=== PATIENT | male | born 1970 | race Caucasian/White ===

== ENCOUNTER 2018-02-08 22:15 | Inpatient (IN) | payer BC ==
[~2018-02-08] VITALS: Ht 182.9 cm; Wt 108.0 kg
[2018-02-08 22:27] VITALS: BP 152/76; PULSE 121; TEMP 102.2
[2018-02-08] MEDS ORDERED: GLUCOSAMIN 500 PO (23:14)
[2018-02-08] MEDS ORDERED: EPA FISH OIL1 SGL PO (23:15)
[2018-02-08] MEDS ORDERED: VITAMINE200 PO (23:15)
[2018-02-09] VITALS (13 sets, daily range): BP systolic 99–122; BP diastolic 57–72; PULSE 79–115; TEMP 98.5–98.9
[2018-02-09 06:34] LABS: HEMATOCRIT 40.9 % (42.0-52.0); HEMOGLOBIN 13.7 g/dl (13.5-18.0); MEAN CELL VOLUME 90 fl (80.0-100.0); MEAN CORPUSCULAR HEMOGLOBIN 30 pg (27.0-31.0); MEAN CORPUSCULAR HGB CONC 34 g/dl (33.0-37.0); MEAN PLATELET VOLUME 10.4 fl (7.4-10.4); PLATELET COUNT 220 K/mm3 (130-400); RED BLOOD COUNT 4.55 M/mm3 (4.20-5.60); REDCELL DISTRIBUTION WIDTH-CV 13.8 % (11.5-14.5)
[2018-02-09 06:44] LABS: ALBUMIN 3.3 gm/dL (3.5-5.0); BILIRUBIN,TOTAL 0.7 mg/dL (0.0-1.0); CALCIUM 8.1 mg/dL (8.4-10.2); CREATININE, serum 0.99 mg/dL (0.66-1.25); TOTAL PROTEIN 6.6 gm/dL (6.4-8.2)
[2018-02-09 07:14] LABS: BAND 37 % (0-10); LYMPHOCYTE 13 % (20.0-51.0); NEUTROPHILS 50 % (42.0-75.2); PLATELET ESTIMATE NORMAL (NORMAL)
[2018-02-10 04:07] VITALS: BP 115/63; PULSE 96; TEMP 98.4
[2018-02-10 06:35] LABS: BASO % 0.3 % (0.0-2.0); EOS # 0.1 (0.0-0.7); EOS % 0.7 % (0-4.0); GRAN # 8.6 (1.4-6.5); GRAN % 75.3 % (42.2-75.2); HEMATOCRIT 37.6 % (42.0-52.0); HEMOGLOBIN 12.6 g/dl (13.5-18.0); LYMPH # 1.9 (1.2-3.4); LYMPH % 16.3 % (20.0-51.0); MEAN CELL VOLUME 91 fl (80.0-100.0); MEAN CORPUSCULAR HEMOGLOBIN 31 pg (27.0-31.0); MEAN CORPUSCULAR HGB CONC 34 g/dl (33.0-37.0); MEAN PLATELET VOLUME 10.6 fl (7.4-10.4); MONO # 0.8 (0.1-0.6); MONO % 6.8 % (1.7-9.3); PLATELET COUNT 203 K/mm3 (130-400); RED BLOOD COUNT 4.13 M/mm3 (4.20-5.60); REDCELL DISTRIBUTION WIDTH-CV 14.1 % (11.5-14.5)
[2018-02-10 06:53] LABS: ALBUMIN 3.2 gm/dL (3.5-5.0); CALCIUM 8.5 mg/dL (8.4-10.2); CREATININE, serum 0.93 mg/dL (0.66-1.25); POTASSIUM 3.8 mmol/L (3.4-5.0)
[2018-02-10 07:55] VITALS: BP 130/79; PULSE 94; TEMP 97.8
[2018-02-10 11:55] VITALS: BP 136/76; PULSE 99; TEMP 97.9
[2018-02-10 15:30] VITALS: BP 139/83; PULSE 110; TEMP 98.1
[2018-02-10 19:40] VITALS: BP 139/85; PULSE 108; TEMP 99.6
[2018-02-10 23:51] VITALS: BP 145/99; PULSE 122; TEMP 99.1
[2018-02-11 03:40] VITALS: BP 147/96; PULSE 119; TEMP 98.2
[2018-02-11 07:44] VITALS: BP 138/89; PULSE 117; TEMP 98.1
[2018-02-11 08:03] LABS: HEMATOCRIT 45.8 % (42.0-52.0); MEAN CELL VOLUME 93 fl (80.0-100.0); MEAN CORPUSCULAR HEMOGLOBIN 31 pg (27.0-31.0); MEAN CORPUSCULAR HGB CONC 34 g/dl (33.0-37.0); MEAN PLATELET VOLUME 10.6 fl (7.4-10.4); PLATELET COUNT 279 K/mm3 (130-400); RED BLOOD COUNT 4.95 M/mm3 (4.20-5.60); REDCELL DISTRIBUTION WIDTH-CV 14.1 % (11.5-14.5)
[2018-02-11 08:07] LABS: HEMOGLOBIN 15.4 g/dl (13.5-18.0)
[2018-02-11 08:50] LABS: CALCIUM 8.8 mg/dL (8.4-10.2); CREATININE, serum 1.02 mg/dL (0.66-1.25); MAGNESIUM 2.4 mg/dL (1.6-2.3); PHOSPHOROUS 3.4 mg/dL (2.5-4.5)
[2018-02-11 09:19] LABS: BAND 5 % (0-10); LYMPHOCYTE 11 % (20.0-51.0); NEUTROPHILS 80 % (42.0-75.2)
[2018-02-11 09:20] LABS: PLATELET ESTIMATE NORMAL (NORMAL)
[2018-02-11 11:28] VITALS: BP 144/87; PULSE 113; TEMP 97.6
[2018-02-11 15:27] VITALS: BP 143/86; PULSE 107; TEMP 99.7
[2018-02-11 19:34] VITALS: BP 156/87; PULSE 104; TEMP 98.8
[2018-02-11 23:28] VITALS: BP 150/85; PULSE 89; TEMP 98
[2018-02-12 03:48] VITALS: BP 145/84; PULSE 87; TEMP 98.3
[2018-02-12 07:14] LABS: HEMATOCRIT 37.8 % (42.0-52.0); MEAN CELL VOLUME 92 fl (80.0-100.0); MEAN CORPUSCULAR HEMOGLOBIN 31 pg (27.0-31.0); MEAN CORPUSCULAR HGB CONC 34 g/dl (33.0-37.0); MEAN PLATELET VOLUME 10.3 fl (7.4-10.4); PLATELET COUNT 271 K/mm3 (130-400); RED BLOOD COUNT 4.12 M/mm3 (4.20-5.60); REDCELL DISTRIBUTION WIDTH-CV 14.1 % (11.5-14.5)
[2018-02-12 07:21] LABS: CALCIUM 8.5 mg/dL (8.4-10.2); CREATININE, serum 0.95 mg/dL (0.66-1.25); POTASSIUM 3.7 mmol/L (3.4-5.0)
[2018-02-12 07:25] LABS: HEMOGLOBIN 12.7 g/dl (13.5-18.0)
[2018-02-12 07:59] VITALS: BP 150/92; PULSE 94; TEMP 98.6
[2018-02-12 08:22] LABS: LYMPHOCYTE 13 % (20.0-51.0); NEUTROPHILS 81 % (42.0-75.2); PLATELET ESTIMATE NORMAL (NORMAL)
[2018-02-12 08:23] LABS: TOXIC GRANULATION PRESENT
[2018-02-12 11:37] VITALS: BP 130/74; PULSE 86; TEMP 98.9
[2018-02-12 15:57] VITALS: BP 153/90; PULSE 88; TEMP 98.6
[2018-02-12 20:29] VITALS: BP 149/85; PULSE 94; TEMP 98.6
[2018-02-13 03:56] VITALS: BP 136/76; PULSE 114; TEMP 98.8
[2018-02-13 07:21] VITALS: BP 146/85; PULSE 100; TEMP 99
[2018-02-13 11:18] LABS: ALBUMIN 2.8 gm/dL (3.5-5.0); BASO # 0.1 (0.0-0.2); BASO % 0.4 % (0.0-2.0); CALCIUM 8.3 mg/dL (8.4-10.2); CREATININE, serum 0.93 mg/dL (0.66-1.25); EOS # 0.3 (0.0-0.7); EOS % 2.7 % (0-4.0); GRAN % 69.5 % (42.2-75.2); HEMOGLOBIN 12.4 g/dl (13.5-18.0); LYMPH # 1.7 (1.2-3.4); LYMPH % 15.1 % (20.0-51.0); MEAN CELL VOLUME 91 fl (80.0-100.0); MEAN CORPUSCULAR HEMOGLOBIN 31 pg (27.0-31.0); MEAN CORPUSCULAR HGB CONC 34 g/dl (33.0-37.0); MEAN PLATELET VOLUME 9.9 fl (7.4-10.4); MONO # 1.3 (0.1-0.6); MONO % 11.4 % (1.7-9.3); PHOSPHOROUS 2.9 mg/dL (2.5-4.5); PLATELET COUNT 263 K/mm3 (130-400); POTASSIUM 3.5 mmol/L (3.4-5.0); RED BLOOD COUNT 4.07 M/mm3 (4.20-5.60); REDCELL DISTRIBUTION WIDTH-CV 14.2 % (11.5-14.5)
[2018-02-13 12:47] VITALS: BP 152/83; PULSE 95; TEMP 99.1
[2018-02-13 16:05] VITALS: BP 150/88; PULSE 99; TEMP 99.6
[2018-02-13 20:03] VITALS: BP 154/88; PULSE 91; TEMP 98.9
[2018-02-14] VITALS (7 sets, daily range): BP systolic 127–151; BP diastolic 77–89; PULSE 62–102; TEMP 98.1–98.7
[2018-02-15 03:53] VITALS: BP 151/80; PULSE 89; TEMP 98.3
[2018-02-15 06:40] LABS: HEMATOCRIT 34.5 % (42.0-52.0); HEMOGLOBIN 11.4 g/dl (13.5-18.0); MEAN CELL VOLUME 92 fl (80.0-100.0); MEAN CORPUSCULAR HEMOGLOBIN 30 pg (27.0-31.0); MEAN CORPUSCULAR HGB CONC 33 g/dl (33.0-37.0); PLATELET COUNT 262 K/mm3 (130-400); RED BLOOD COUNT 3.77 M/mm3 (4.20-5.60); REDCELL DISTRIBUTION WIDTH-CV 13.6 % (11.5-14.5)
[2018-02-15 06:54] LABS: CALCIUM 8.4 mg/dL (8.4-10.2); CREATININE, serum 0.77 mg/dL (0.66-1.25); POTASSIUM 3.4 mmol/L (3.4-5.0)
[2018-02-15 08:03] VITALS: BP 125/71; PULSE 88; TEMP 98.4
[2018-02-15 09:39] LABS: BAND 2 % (0-10); BASOPHIL 2 % (0-2); EOSINOPHIL 1 % (0-4); LYMPHOCYTE 19 % (20.0-51.0); NEUTROPHILS 72 % (42.0-75.2); PLATELET ESTIMATE NORMAL (NORMAL)
[2018-02-15] MEDS ORDERED: PERCOCET 325 MG1 TA2 PO (10:47)
[2018-02-15] MEDS ORDERED: COLACE 100100 MG/CAP PO (10:48)
[2018-02-15] MEDS ORDERED: MOTRIN 600600 MG/TAB PO (10:49)
[2018-02-15] MEDS ORDERED: AMOXICILLIN 8751 TAB PO (10:49)
[2018-02-15 11:22] VITALS: BP 145/74; PULSE 107; TEMP 98.2
[2018-02-15 16:35] VITALS: BP 124/77; PULSE 94; TEMP 98.5
[2018-02-15 20:11] VITALS: BP 144/79; PULSE 101; TEMP 97.9
[2018-02-15 23:34] VITALS: BP 146/90; PULSE 100; TEMP 98.2
[2018-02-16 04:33] VITALS: BP 127/80; PULSE 90; TEMP 98.5
[2018-02-16 07:41] LABS: CALCIUM 8.5 mg/dL (8.4-10.2); CREATININE, serum 0.77 mg/dL (0.66-1.25); POTASSIUM 3.3 mmol/L (3.4-5.0)
[2018-02-16 08:53] VITALS: BP 150/81; PULSE 113; TEMP 98
== END 2018-02-16 11:00 | disposition home or self-care (01) | DRG 329 ==
LOC: SURG 22:15
PROVIDERS: Surgery
PROC: 0DB80ZZ Excision of Small Intestine, Open Approach (ICD-10-PCS; principal; 2018-02-09)
DX: Q43.0 Meckel's diverticulum (displaced) (hypertrophic) (principal); K65.0 Generalized (acute) peritonitis; K56.7 Ileus, unspecified
CPT/HCPCS: A4314; A9284; J1100; J1170; J1650; J1885; J2405; J2543; J2550; J2704; J2710; J3010; J3230; J7040; J7120; Q9967

== ENCOUNTER 2020-09-28 17:53 | Observation (INO) | payer BC ==
[~2020-09-28] VITALS: Ht 182.9 cm; Wt 99.7 kg
[~2020-09-28 17:53] MED LIST: AMOXICILLIN 8751 TAB PO; COLACE 100100 MG/CAP PO; EPA FISH OIL1 SGL PO; GLUCOSAMIN 500 PO; MOTRIN 600600 MG/TAB PO; PERCOCET 325 MG1 TA2 PO; VITAMINE200 PO
[2020-09-28] MEDS ORDERED: ZYRTEC 10MG10 MG PO (18:59)
[2020-09-28] MEDS ORDERED: TUMERIC (19:00)
[2020-09-28] MEDS ORDERED: GINGER (19:00)
--- NOTE | 2020-09-28 19:30 | NUR ---
Patient arrived and in room with at bedside. Oriented patient to room and call light. Dr. Moreira in to see patient. Admission complete. IV fluids and zosyn infusing. Educated patient that he will be NPO after midnight. No other needs at this time.
[2020-09-28 20:54] VITALS: BP 135/81; PULSE 95; TEMP 98.1
[2020-09-28 22:53] VITALS: BP 127/78; PULSE 84; TEMP 98.2
[2020-09-29 03:48] VITALS: BP 116/73; PULSE 80; TEMP 98
--- NOTE | 2020-09-29 05:08 | NUR ---
Patient slept well throughout the night with no complaints of pain. Patient has been NPO since midnight. IV fluids and zosyn infusing.
[2020-09-29 07:13] LABS: BASO % 0.3 % (0.0-2.0); EOS # 0.1 (0.0-0.7); EOS % 1.1 % (0-4.0); GRAN # 5.6 (1.4-6.5); GRAN % 63.5 % (42.2-75.2); HEMOGLOBIN 13.3 g/dl (13.5-18.0); LYMPH % 22.7 % (20.0-51.0); MEAN CELL VOLUME 89 fl (80.0-100.0); MEAN CORPUSCULAR HEMOGLOBIN 30 pg (27.0-31.0); MEAN CORPUSCULAR HGB CONC 33 g/dl (33.0-37.0); MEAN PLATELET VOLUME 10.3 fl (7.4-10.4); MONO # 1.1 (0.1-0.6); MONO % 12.3 % (1.7-9.3); PLATELET COUNT 281 K/mm3 (130-400); RED BLOOD COUNT 4.48 M/mm3 (4.20-5.60); REDCELL DISTRIBUTION WIDTH-CV 13.7 % (11.5-14.5)
[2020-09-29 07:21] VITALS: BP 109/82; PULSE 90; TEMP 98.4
[2020-09-29 07:26] LABS: ALBUMIN 3.5 gm/dL (3.5-5.0); BILIRUBIN,TOTAL 0.5 mg/dL (0.0-1.0); C-REACTIVE PROTEIN 3.7 mg/dL (0.0-0.9); CALCIUM 8.7 mg/dL (8.4-10.2); CREATININE, serum 0.85 (0.66-1.25); TOTAL PROTEIN 6.6 gm/dL (6.4-8.2)
--- NOTE | 2020-09-29 08:00 | NUR ---
Patient showered independently. Denies needs at this time.
--- NOTE | 2020-09-29 09:03 | NUR ---
Initial visit; Patient thanked Mold Preparer for offering spiritual care though seemed disinterested. Mold Preparer wished him well.
--- NOTE | 2020-09-29 09:43 | NUR ---
Patient up ambulating in halls independently. Denies needs at this time.
[2020-09-29 11:24] VITALS: BP 113/73; PULSE 94; TEMP 98.9
--- NOTE | 2020-09-29 12:33 | NUR ---
Dr. Reyes in to see patient.
--- NOTE | 2020-09-29 14:03 | NUR ---
Residential Youth Counselor met with patient to complete intake. The patient lives in [place] with his . The patient denies DME use and is independent. The patient's PCP is Dr. Gregory Reyes and patient [facility]. The patient does not have advanced directives in the EMR but states they are complete and designate his . The patient plans to return home at discharge and will be picked up by his . There are no additional needs at this time.
[2020-09-29 16:10] VITALS: BP 110/66; PULSE 95; TEMP 98.5
[2020-09-29] MEDS ORDERED: CIPRO 500MG TA500 MG PO ×2 (17:55→17:59)
[2020-09-29] MEDS ORDERED: FLAGYL500 MG PO ×2 (17:56→17:59)
--- NOTE | 2020-09-29 19:12 | NUR ---
Patient doing well throughout the day, spouse at bedside this afternoon. Discharge education provided to patient. Educated on when to call provider and scheduling follow up appointment. Patient educated on new antibiotics, dose given prior to discharge due to pharmacy closing at 1900. All questions answered. INT discontinued, catheter tip intact. Denies further needs at this time. Patient ambulated out with surgical staff and family.
== END 2020-09-29 19:10 | disposition home or self-care (01) ==
LOC: MEDICAL 17:53 → SURG 18:25
PROVIDERS: Surgery; ADMIT Surgery
DX: R10.813 Right lower quadrant abdominal tenderness (principal); D72.829 Elevated white blood cell count, unspecified; Z88.8 Allergy status to other drugs, medicaments and biological substances
CPT/HCPCS: A9284; J2543; J3480

== ENCOUNTER 2020-11-03 08:15 | Inpatient (IN) | payer BC ==
[~2020-11-03] VITALS: Ht 182.9 cm; Wt 94.5 kg
[~2020-11-03 08:15] MED LIST changes: +CIPRO 500MG TA500 MG PO; +FLAGYL500 MG PO; +GINGER; +TUMERIC; +ZYRTEC 10MG10 MG PO
[2020-11-03 09:17] LABS: BASO # 0.1 (0.0-0.2); BASO % 0.3 % (0.0-2.0); EOS % 0.2 % (0-4.0); GRAN # 10.9 (1.4-6.5); GRAN % 76.1 % (42.2-75.2); HEMATOCRIT 46.6 % (42.0-52.0); HEMOGLOBIN 15.7 g/dl (13.5-18.0); LYMPH # 1.9 (1.2-3.4); LYMPH % 13.5 % (20.0-51.0); MEAN CELL VOLUME 89 fl (80.0-100.0); MEAN CORPUSCULAR HEMOGLOBIN 30 pg (27.0-31.0); MEAN CORPUSCULAR HGB CONC 34 g/dl (33.0-37.0); MEAN PLATELET VOLUME 9.8 fl (7.4-10.4); MONO # 1.4 (0.1-0.6); MONO % 9.6 % (1.7-9.3); PLATELET COUNT 304 K/mm3 (130-400); RED BLOOD COUNT 5.23 M/mm3 (4.20-5.60); REDCELL DISTRIBUTION WIDTH-CV 13.5 % (11.5-14.5)
[2020-11-03 09:26] LABS: ALBUMIN 4.4 gm/dL (3.5-5.0); BILIRUBIN,TOTAL 0.5 mg/dL (0.0-1.0); CALCIUM 9.6 mg/dL (8.4-10.2); CREATININE, serum 0.88 (0.66-1.25); POTASSIUM 4.3 mmol/L (3.4-5.0); TOTAL PROTEIN 7.8 gm/dL (6.4-8.2)
[2020-11-03] MEDS ORDERED: ENTOCORT EC3 MG PO (11:31)
--- NOTE | 2020-11-03 12:34 | NUR ---
PT ADMITTED TO ROOM 350 FROM ED FOR SMALL BOWEL OBSTRUCTION. AT BEDSIDE. INITIAL ASSESSMENT COMPLETED. DOCTOR TEJAS NOTIFIED OF ADMISSION. PT ADMITTED WITH NGT IN RIGHT NARE. CONNECTED TO LIS. MODERATE AMOUNT OF BROWN DRAINAGE NOTICED IN SUCTION CONTAINER. ABDOMEN DISTENDED, BOWEL SOUNDS AUSCULTATED IN RIGHT LOWER AND RIGHT UPPER QUADRANT. BOWEL SOUNDS ABSENT IN LEFT UPPER AND LEFT LOWER QUADRANT. LAST BM ON 3/15 PM. NO COMPLAINTS AT THIS TIME.
[2020-11-03 12:35] VITALS: BP 118/75; PULSE 90; TEMP 99
--- NOTE | 2020-11-03 13:59 | NUR ---
Dr Reyes here to see patient.
--- NOTE | 2020-11-03 14:20 | NUR ---
Dr Diane notified of consult.
[2020-11-03 16:00] VITALS: BP 132/74; PULSE 78; TEMP 98.1
[2020-11-03 16:08] VITALS: BP 122/78; PULSE 95; TEMP 98.9
[2020-11-03 20:01] VITALS: BP 122/69; PULSE 101; TEMP 98.5
--- NOTE | 2020-11-03 20:09 | NUR ---
MEDICATED WITH DILAUDID 0.5MG IVP AT THIS TIME. BOWEL SOUNDS HYPOACTIVE.
--- NOTE | 2020-11-03 22:40 | NUR ---
MEDICATED WITH DILAUDID 0.5MG IVP FOR PAIN 02/27 TO ABD. REPORTS "CRAMPY" TYPE PAIN. HAS NGT TO LIS, MINIMAL OUTPUT SINCE SHIFT CHANGE. VOIDING PER URINAL. IV TO RIGHT AC, FLUIDS INFUSING WITHOUT PROBLEM. TAKING ICE CHIPS. IS ALERT AND ORIENTED X4. WILL MONITOR FOR CHANGES.
[2020-11-03 23:49] VITALS: BP 124/69; PULSE 92; TEMP 98.8
--- NOTE | 2020-11-04 01:54 | NUR ---
PT AWAKE, COMPLAINS OF PAIN 5/10 TO ABD. MEDICATED WITH DILAUDID 0.5MG IVP AT THIS TIME. IV FLAGYL INFUSING WITHOUT PROBLEM. NGT WITH MINIMAL DRAINAGE SINCE SHIFT CHANGE. NO FLATUS.
[2020-11-04 03:56] VITALS: BP 113/69; PULSE 81; TEMP 98.1
--- NOTE | 2020-11-04 04:27 | NUR ---
MEDICATED WITH DILAUDID 0.5MG IVP FOR PAIN TO ABD 5/10. NOTED AUDIBLE BOWEL SOUNDS, NO FLATUS.
[2020-11-04 06:58] LABS: BASO % 0.2 % (0.0-2.0); GRAN # 5.3 (1.4-6.5); GRAN % 65.7 % (42.2-75.2); LYMPH # 1.9 (1.2-3.4); MEAN CELL VOLUME 91 fl (80.0-100.0); MEAN CORPUSCULAR HEMOGLOBIN 30 pg (27.0-31.0); MEAN CORPUSCULAR HGB CONC 33 g/dl (33.0-37.0); MEAN PLATELET VOLUME 10.3 fl (7.4-10.4); MONO # 0.9 (0.1-0.6); MONO % 10.9 % (1.7-9.3); PLATELET COUNT 261 K/mm3 (130-400); REDCELL DISTRIBUTION WIDTH-CV 13.6 % (11.5-14.5)
[2020-11-04 07:02] LABS: HEMOGLOBIN 13.5 g/dl (13.5-18.0)
[2020-11-04 07:13] LABS: ALBUMIN 3.6 gm/dL (3.5-5.0); BILIRUBIN,TOTAL 0.5 mg/dL (0.0-1.0); C-REACTIVE PROTEIN 2.3 mg/dL (0.0-0.9); CALCIUM 8.6 mg/dL (8.4-10.2); CREATININE, serum 0.77 (0.66-1.25); POTASSIUM 4.3 mmol/L (3.4-5.0); TOTAL PROTEIN 6.6 gm/dL (6.4-8.2)
[2020-11-04 08:00] VITALS: BP 118/69; PULSE 83; TEMP 98.5
--- NOTE | 2020-11-04 09:08 | NUR ---
SW met with the patient to discuss discharge plan. The patient lives in [place] with his , Bridgett (ph#[phone]). He reports independence with ADLs and does not have any DME. The patient's PCP is Dr. Gregory Reyes and he receives his medications from [facility]. He reports no difficulties obtaining his meds. The patient does not have a DPOA-HC in EMR, but he states that he does have one completed and that it designates his . The patient plans to return home with his upon discharge. No additional needs at this time.
--- NOTE | 2020-11-04 09:37 | NUR ---
Initial visit; Patient thanked Gray Tender for stopping and wishing him well though declined spiritual care.
[2020-11-04 11:49] VITALS: BP 118/64; PULSE 83; TEMP 98.6
--- NOTE | 2020-11-04 15:06 | NUR ---
100 MLS OF DRAINAGE TO NG CANNISTER.
--- NOTE | 2020-11-04 15:06 | NUR ---
NG TUBE TO CLAMPED.
[2020-11-04 15:25] VITALS: BP 126/77; PULSE 85; TEMP 98.4
--- NOTE | 2020-11-04 15:51 | NUR ---
PT ASSISTED WITH SET UP FOR SHOWER INDEPENDENTLY.
[2020-11-04 18:56] VITALS: BP 136/77; PULSE 80; TEMP 97.4
--- NOTE | 2020-11-04 20:45 | NUR ---
Pt. sitting up in bed. Pt. is A&OX3, assessment complete. IV to rt. forearm patent, IV fluids infusing per orders. Pt. denies pain. NG tube clamped at this time. Pt. denies furhter needs, call light within reach.
[2020-11-05 03:13] VITALS: BP 142/68; PULSE 81; TEMP 97
[2020-11-05 03:14] VITALS: BP 147/70; PULSE 89; TEMP 97.9
--- NOTE | 2020-11-05 03:24 | NUR ---
Pt. sitting up in bed. Pt. reports feeling very full, not so much nauseated and would like the NG tube hooked back up to suction. NG to LIS. small amount of clear drainage pulled from tube initially. Will monitor.
[2020-11-05 06:27] LABS: BASO % 0.2 % (0.0-2.0); GRAN # 6.3 (1.4-6.5); GRAN % 61.6 % (42.2-75.2); HEMATOCRIT 41.6 % (42.0-52.0); HEMOGLOBIN 13.9 g/dl (13.5-18.0); LYMPH # 2.6 (1.2-3.4); LYMPH % 25.8 % (20.0-51.0); MEAN CELL VOLUME 90 fl (80.0-100.0); MEAN CORPUSCULAR HEMOGLOBIN 30 pg (27.0-31.0); MEAN CORPUSCULAR HGB CONC 33 g/dl (33.0-37.0); MEAN PLATELET VOLUME 10.3 fl (7.4-10.4); MONO # 1.2 (0.1-0.6); MONO % 12.1 % (1.7-9.3); PLATELET COUNT 294 K/mm3 (130-400); RED BLOOD COUNT 4.61 M/mm3 (4.20-5.60); REDCELL DISTRIBUTION WIDTH-CV 13.2 % (11.5-14.5)
[2020-11-05 06:43] LABS: ALBUMIN 3.7 gm/dL (3.5-5.0); BILIRUBIN,TOTAL 0.4 mg/dL (0.0-1.0); CALCIUM 9.2 mg/dL (8.4-10.2); CREATININE, serum 0.85 (0.66-1.25); TOTAL PROTEIN 6.9 gm/dL (6.4-8.2)
[2020-11-05 07:27] VITALS: BP 120/76; PULSE 92; TEMP 98.6
--- NOTE | 2020-11-05 08:00 | NUR ---
PATIENT IS A&O. VSS. RATES ABD PAIN AT 3/10 AND HAS NO C/O N/V AT THIS TIME. CLINICAL PSYCHOLOGY PROFESSOR REPORTED PATIENT HAD NG CLAMPED FOR APPROX 12 HOURS AND CALLED OUT AROUND 0400 C/O FEELING FULL. PATIENT NG BACK TO LIS WITH 150CC OF CLEAR DRAINAGE OUT OVER NIGHT. NPO WITH ICE CHIPS. NG CLAMPED FOR ORAL MEDS. NURSING INSTRUCTED PATIENT THAT NG WOULD BE CLAMPED FOR 30 MINUTES DUE TO MEDS BUT COULD REMAIN CLAMPED IF TOLERATING WELL. ABD IS ROUND, SOFT AND WITH HYPER ACTIVE BOWL SOUNDS X4 QUADS. PATIENT REPORTS HE IS BELCHING BUT NOT PASSING FLATUS. BM YESTERDAY. IV FLUIDS INFUSING VIA PUMP INTO RIGHT FORARM IV. HEAD TO TOE ASSESSMENT COMPLETE. PATIENT GOING TO GO AMBULATE IN HALLS. NO OTHER NEEDS AT THIS TIME. PATIENT INDEPENDENT IN ROOM.
[2020-11-05 10:52] VITALS: BP 136/85; PULSE 91; TEMP 98.3
--- NOTE | 2020-11-05 11:35 | NUR ---
PATIENT CALLED OUT AND REPORTED HE FINALLY PASSED A LITTLE GAS ON HIS WAY TO THE BATHROOM AND HAD A SMALL SOFT-FORMED STOOL. PATIENT SAYS IT DIDN'T OFFER MUCH RELIEF BUT ITS A START. NG STILL CLAMPED. WILL MONITOR.
--- NOTE | 2020-11-05 14:00 | NUR ---
PATIENT WENT FOR ANOTHER WALK AND AFTER PASSES A LITTLE MORE GAS AND HAD ANOTHER SMALL, SOFT-FORMED BM. PATIENT RESTING IN BED. STILL REPORTS HE FEELS BLOATED BUT NO NAUSEATED. NG STILL CLAMPED. WILL MONITOR.
--- NOTE | 2020-11-05 14:49 | NUR ---
PATIENT CALLED OUT REQUESTING TO BE HOOKED NG BACK UP TO LIS DUE TO FEELINGS OF REFLUX. NG TO LIS. AT BEDSIDE. WILL MONITOR.
[2020-11-05 15:25] VITALS: BP 123/77; PULSE 86; TEMP 98.1
--- NOTE | 2020-11-05 16:45 | NUR ---
PATIENT REPORTS PASSING GAS 3-4 TIMES NOW AND HAS NOTICED DECREASED ABD PRESSURE. PATIENT HAD ANOTHER SMALL SOFT-BM. PATIENT AND GOING FOR A WALK IN HALLS.
--- NOTE | 2020-11-05 18:15 | NUR ---
PATIENT REPORTED RED STREAKING AT IV SITE WITH IV CIPRO. PATIENT STATED THIS IS THE SECOND TIME IT HAS HAPPENED. AFTER FLUSHING SITE WITH FLUIDS THE REDDNESS FAIDED TILL IT WAS GONE. IV FLUSHES EASILY, REDDNESS NOW GONE. WILL REPORT POSSIBLE SENSITIVITY TO SURGEON.
[2020-11-05 20:15] VITALS: BP 130/76; PULSE 86; TEMP 98.9
--- NOTE | 2020-11-05 20:45 | NUR ---
Pt. sitting up in bed. Pt. is A&OX3, assessment complete. IV to rt. forearm patent, IV fluids infusing per orders. NG tube clamped at this time. Pt. denies nausea or vomiting. Pt. reports passing gas and having multiple bm's today. Pt. denies pain or other needs, call light within reach.
[2020-11-06] VITALS (7 sets, daily range): BP systolic 115–132; BP diastolic 62–82; PULSE 61–102; TEMP 97.7–98.5
[2020-11-06 06:12] LABS: GRAN # 5.8 (1.4-6.5); GRAN % 71.3 % (42.2-75.2); HEMATOCRIT 38.5 % (42.0-52.0); HEMOGLOBIN 12.7 g/dl (13.5-18.0); LYMPH # 1.8 (1.2-3.4); LYMPH % 21.5 % (20.0-51.0); MEAN CELL VOLUME 91 fl (80.0-100.0); MEAN CORPUSCULAR HEMOGLOBIN 30 pg (27.0-31.0); MEAN CORPUSCULAR HGB CONC 33 g/dl (33.0-37.0); MEAN PLATELET VOLUME 9.6 fl (7.4-10.4); MONO # 0.6 (0.1-0.6); PLATELET COUNT 264 K/mm3 (130-400); RED BLOOD COUNT 4.24 M/mm3 (4.20-5.60); REDCELL DISTRIBUTION WIDTH-CV 13.2 % (11.5-14.5)
[2020-11-06 06:14] LABS: INR 1.1 (0.8-3.0); PROTHROMBIN TIME 12.1 SECONDS (9.7-12.8)
[2020-11-06 06:20] LABS: ALBUMIN 3.4 gm/dL (3.5-5.0); BILIRUBIN,TOTAL 0.3 mg/dL (0.0-1.0); CALCIUM 8.7 mg/dL (8.4-10.2); CREATININE, serum 0.81 (0.66-1.25); POTASSIUM 3.8 mmol/L (3.4-5.0); TOTAL PROTEIN 6.2 gm/dL (6.4-8.2)
--- NOTE | 2020-11-06 08:48 | NUR ---
PT RESTING IN BED. DENIES NEEDS AT THIS TIME. VSS, NG TUBE CLAMPED. PT PASSING ADRIEL AND HAS HAD SEVERAL BM'S THROUGHT NOC.
--- NOTE | 2020-11-06 12:13 | NUR ---
OK TO REMOVE NG TUBE PER DR. LAZARO.
--- NOTE | 2020-11-06 15:19 | NUR ---
NG TUBE DISCONTINUED PER ORDERS.
--- NOTE | 2020-11-06 21:00 | NUR ---
PT AMBULATING IN HALLWAY ON OWN. DENIES PAIN. SL TO RT FOREARM WITHOUT REDNESS OR SWELLING.
[2020-11-07 04:31] VITALS: BP 124/68; PULSE 62; TEMP 98
[2020-11-07 05:56] LABS: BASO % 0.1 % (0.0-2.0); GRAN % 66.2 % (42.2-75.2); HEMATOCRIT 38.1 % (42.0-52.0); HEMOGLOBIN 12.5 g/dl (13.5-18.0); LYMPH # 1.8 (1.2-3.4); LYMPH % 24.5 % (20.0-51.0); MEAN CELL VOLUME 91 fl (80.0-100.0); MEAN CORPUSCULAR HEMOGLOBIN 30 pg (27.0-31.0); MEAN CORPUSCULAR HGB CONC 33 g/dl (33.0-37.0); MONO # 0.7 (0.1-0.6); MONO % 8.8 % (1.7-9.3); PLATELET COUNT 256 K/mm3 (130-400); REDCELL DISTRIBUTION WIDTH-CV 13.1 % (11.5-14.5)
--- NOTE | 2020-11-07 06:00 | NUR ---
IV SOLUMEDROL GIVEN PER PATENT SL TO RT FOREARM. OFFERS NO COMPLAINTS.
[2020-11-07 06:09] LABS: ALBUMIN 3.1 gm/dL (3.5-5.0); BILIRUBIN,TOTAL 0.2 mg/dL (0.0-1.0); CALCIUM 8.6 mg/dL (8.4-10.2); CREATININE, serum 0.81 (0.66-1.25); POTASSIUM 3.9 mmol/L (3.4-5.0)
[2020-11-07 07:33] VITALS: BP 128/77; PULSE 60; TEMP 98.2
[2020-11-07] MEDS ORDERED: PREDNISONE20 MG PO (08:00)
[2020-11-07] MEDS ORDERED: CIPRO 500MG TA500 MG PO ×2 (08:00)
[2020-11-07] MEDS ORDERED: FLAGYL500 MG PO ×2 (08:01)
--- NOTE | 2020-11-07 10:19 | NUR ---
PATIENT DISCHARGING HOME. GAVE DISCHARGE INSTRUCTIONS, E-SCRIPT SENT, AND F/U APT DISCUSSED. ANSWERED QUESTIONS/CONCERNS. STUDENT NURSE DC'D RIGHT FORARM IV, COVERED SITE WITH FRANCIE [employer] LILLY. PATIENT ESCORTED OUT TO PERSONAL VEHICLE WHERE FAMILY IS WAITING.
[2020-11-15] MEDS ORDERED: FLAGYL500 MG PO (12:27)
[2020-11-15] MEDS ORDERED: CIPRO 500MG TA500 MG PO (12:27)
== END 2020-11-07 10:30 | disposition home or self-care (01) | DRG 387 ==
LOC: COL.ER 08:15 → SURG 10:24
PROVIDERS: Emergency Medicine; ADMIT Surgery
DX: K50.012 Crohn's disease of small intestine with intestinal obstruction (principal); K52.9 Noninfective gastroenteritis and colitis, unspecified
CPT/HCPCS: A9284; J0744; J1170; J2250; J2920; J7030; Q9967

== ENCOUNTER → 2020-11-11 | Outpatient (CLI) | payer BC ==
[~2020-11-11] MED LIST changes: +ENTOCORT EC3 MG PO; +NEURONTIN100 MG/CAP PO; +NORCO 325 MG-51 TAB PO; +PREDNISONE10 MG PO; +PREDNISONE20 MG PO; +ULTRAM 50MG TAB50 MG PO
== END ==
LOC: COL.LAB 10:28
DX: K50.812 Crohn's disease of both small and large intestine with intestinal obstruction (principal)

== ENCOUNTER 2020-11-18 19:51 | Inpatient (IN) | payer BC ==
[~2020-11-18] VITALS: Ht 182.9 cm; Wt 96.3 kg
[~2020-11-18 19:51] MED LIST changes: -NEURONTIN100 MG/CAP PO; -NORCO 325 MG-51 TAB PO; -PREDNISONE10 MG PO; -ULTRAM 50MG TAB50 MG PO
[2020-11-18 21:10] VITALS: BP 136/92; PULSE 95; TEMP 98.2
[2020-11-18] MEDS ORDERED: PREDNISONE10 MG PO (22:01)
--- NOTE | 2020-11-18 22:06 | NUR ---
Pt. sitting up in bed at this time. Pt. arrived to the floor around 2014. Pt. oriented to room. NG started at this time to rt. nostral, pt. tolerated. NG tube is a 18 Fr. to LIS. IV started to lt. hand. 20g. Pt. tolerated. Assessment complete. Pt. denies further needs.
[2020-11-19] VITALS (7 sets, daily range): BP systolic 125–141; BP diastolic 79–88; PULSE 78–96; TEMP 97.9–99.1
[2020-11-19 06:43] LABS: BASO % 0.2 % (0.0-2.0); EOS # 0.1 (0.0-0.7); EOS % 0.6 % (0-4.0); GRAN # 7.1 (1.4-6.5); GRAN % 59.5 % (42.2-75.2); HEMATOCRIT 41.1 % (42.0-52.0); HEMOGLOBIN 13.7 g/dl (13.5-18.0); LYMPH # 3.5 (1.2-3.4); LYMPH % 29.8 % (20.0-51.0); MEAN CELL VOLUME 92 fl (80.0-100.0); MEAN CORPUSCULAR HEMOGLOBIN 31 pg (27.0-31.0); MEAN CORPUSCULAR HGB CONC 33 g/dl (33.0-37.0); MEAN PLATELET VOLUME 10.4 fl (7.4-10.4); MONO # 1.1 (0.1-0.6); MONO % 9.6 % (1.7-9.3); PLATELET COUNT 294 K/mm3 (130-400); RED BLOOD COUNT 4.47 M/mm3 (4.20-5.60); REDCELL DISTRIBUTION WIDTH-CV 13.9 % (11.5-14.5)
[2020-11-19 06:55] LABS: CREATININE, serum 0.88 (0.66-1.25); POTASSIUM 4.1 mmol/L (3.4-5.0)
--- NOTE | 2020-11-19 06:56 | NUR ---
Report received, Dr Cole in with patient
[2020-11-19 08:14] LABS: ALBUMIN 3.4 gm/dL (3.5-5.0); BILIRUBIN UNCONJUGATED 0.5 mg/dL (0.0-1.1); BILIRUBIN,TOTAL 0.5 mg/dL (0.0-1.0); TOTAL PROTEIN 6.3 gm/dL (6.4-8.2)
--- NOTE | 2020-11-19 08:46 | NUR ---
Pt doing well at this time. He states that he overall feels pretty good at this time, rates pain 1/10 at this time. He states that he has intermittent cramping but that it only lasts a short time. Flushed NG tube at this time, there was a lot of residue in the tubing that was removed. Gave patient ice chips at this time. No other needs, call light within reach, will continue to monitor
--- NOTE | 2020-11-19 09:20 | NUR ---
SW met with the patient to discuss discharge plan. The patient lives in [place] with his , Bridgett (ph#[phone]). He reports independence with ADLs and does not have any DME. The patient's PCP is Dr. Gregory Reyes and he receives his medications from [facility]. The patient does not have a DPOA-HC in EMR, but he states that he does have one completed and that it designates his . The patient plans to return home with his upon discharge. No additional needs at this time.
--- NOTE | 2020-11-19 12:39 | NUR ---
First visit from the pin inserter regulator. No needs right now.
--- NOTE | 2020-11-19 15:31 | NUR ---
Patient doing well at this time. Dr Reyes has been in to see patient, new orders wrote. NG clamped and patient started on clear liquids. He is tolerating them so far. Reviewed new orders with him to include the bowel prep, patient stated that her understood as Dr Reyes went over everything with him. Consent signed for surgery tomorrow, patient had no questions. Call light within reach, will continue to monitor
--- NOTE | 2020-11-19 17:52 | NUR ---
Pt slowing down on how much fluid he is taking in. He states that he is starting to feel full and reports the fluids are not going through him. Dr Reyes notified of this - stated to have him do the best that he can, but to hook him up to suction if needed. Informed patient to notify nursing how he is tolerating.
[2020-11-19 18:15] LABS: HEPATITIS B SURFACE ANTIGEN Negative (Negative)
--- NOTE | 2020-11-19 19:06 | NUR ---
NG hooked back up to suction, patient not tolerating the fluids. Advanced the NG 3 cm to 58cm. Report given
--- NOTE | 2020-11-19 19:07 | NUR ---
MEDICATED WITH MORPHINE 2MG IVP FOR CRAMPING PAIN TO ABD. NGT WITH 150CC OF CLEAR FLUID.
--- NOTE | 2020-11-19 19:34 | NUR ---
DR LAZARO AWARE OF PTS REFUSAL OF BOWEL PREP. KEEP NGT TO LIS.
--- NOTE | 2020-11-19 21:09 | NUR ---
MEDICATED WITH MORPHINE 2MG IVP FOR CRAMPING PAIN 6/10 TO ABD. PLACEMENT OF NGT CONFIRMED WITH AIR BOLUS. HAS 400CC OF FLUID IN CANNISTER, ABD SOFT, BOWEL SOUNDS NOTED. VOIDS 800CC OF YELLOW URINE. IVF TO LEFT HAND, SITE IS CLEAR. IS ALERT AND ORIENTED X4. NGT TO RIGHT NARE.
--- NOTE | 2020-11-19 22:30 | NUR ---
MEDICATED WITH BENADRYL 25MG IVP FOR SLEEP.
--- NOTE | 2020-11-19 23:10 | NUR ---
MORPHINE 2MG IVP FOR CRAMPING PAIN TO ABDOMEN. NGT TO LIS.
[2020-11-20] VITALS (13 sets, daily range): BP systolic 94–143; BP diastolic 57–86; PULSE 75–95; TEMP 97.8–100.2
--- NOTE | 2020-11-20 00:15 | NUR ---
PT COMPLAINS OF SEVERE LOWER ABD PAIN, DESCRIBES "LIKE A LARGE GAS BUBBLE AND I CAN'T GET COMFORTABLE". PT SITTING AT EDGE OF BED, SLIGHT HYPERVENTILATING. ENCOURAGED SLOW BREATHING, PLACED ON OXYGEN AT 2L/NC.
--- NOTE | 2020-11-20 00:30 | NUR ---
NOTIFIED DR LAZARO OF PTS COMPLAINT. ORDER FOR EXTRA DOSE MORPHINE 2MG IV NOW AND ADD NORCO 5/325MG TO PAIN REGIMEN.
--- NOTE | 2020-11-20 00:35 | NUR ---
PT IN BED, REPORTS THE "BUBBLE" HAS MOVED. MORPHINE 2MG IVP GIVEN AT THIS TIME. INFORMED PT OF ADDITIONAL ORAL PAIN MED AVAILABLE, DOES NOT WANT AT THIS TIME.
--- NOTE | 2020-11-20 01:50 | NUR ---
NGT CLAMPED. ORAL MEDS GIVEN INCLUDING NORCO FOR PAIN. WILL UNCLAMP IN 30 MINUTES.
--- NOTE | 2020-11-20 02:25 | NUR ---
NGT UNCLAMPED. PT RESTING QUIETLY. REMOVED OXYGEN.
--- NOTE | 2020-11-20 05:06 | NUR ---
MEDICATED WITH MORPHINE 2MG IVP FOR CRAMPING PAIN.
[2020-11-20 06:37] LABS: BASO % 0.2 % (0.0-2.0); EOS # 0.1 (0.0-0.7); EOS % 0.6 % (0-4.0); GRAN # 8.8 (1.4-6.5); GRAN % 62.7 % (42.2-75.2); HEMATOCRIT 42.1 % (42.0-52.0); HEMOGLOBIN 13.9 g/dl (13.5-18.0); LYMPH # 3.7 (1.2-3.4); LYMPH % 26.2 % (20.0-51.0); MEAN CELL VOLUME 93 fl (80.0-100.0); MEAN CORPUSCULAR HEMOGLOBIN 31 pg (27.0-31.0); MEAN CORPUSCULAR HGB CONC 33 g/dl (33.0-37.0); MEAN PLATELET VOLUME 10.2 fl (7.4-10.4); MONO # 1.4 (0.1-0.6); PLATELET COUNT 281 K/mm3 (130-400); RED BLOOD COUNT 4.54 M/mm3 (4.20-5.60); REDCELL DISTRIBUTION WIDTH-CV 13.9 % (11.5-14.5)
[2020-11-20 06:51] LABS: INR 1.1 (0.8-3.0); PROTHROMBIN TIME 12.1 SECONDS (9.7-12.8)
[2020-11-20 07:01] LABS: ALBUMIN 3.6 gm/dL (3.5-5.0); BILIRUBIN,TOTAL 0.4 mg/dL (0.0-1.0); C-REACTIVE PROTEIN 0.6 mg/dL (0.0-0.9); CALCIUM 8.9 mg/dL (8.4-10.2); CREATININE, serum 0.91 (0.66-1.25); POTASSIUM 3.8 mmol/L (3.4-5.0); TOTAL PROTEIN 6.7 gm/dL (6.4-8.2)
--- NOTE | 2020-11-20 08:00 | NUR ---
PATIENT IS A&O AND INDEPENDENT IN ROOM. VSS. DENIES PAIN AT THIS TIME. ABD IS DISTENDED, SOFT AND WITH POSITIVE BOWL SOUNDS. NO C/O N/V. IV FLUIDS INFUSING VIA PUMP INTO LEFT HAND. NG TO LIS WITH SMALL AMOUNTS OF GASTRIC DRAINAGE NOTED IN NG CANISTER. PATIENT REPORTS HE IS PASSING GAS AND HAD A SMALL LOOSE STOOL THIS AM. PATIENT SCHEDULED FOR SURGERY LATER TODAY. CONSENT ON CHART. STUDENT NURSE WORKING WITH PATIENT TODAY, SEE CHARTING. HEAD TO TOE ASSESSMENT COMPLETE. AM MEDS GIVEN BY STUDENT. NO OTHER NEEDS. CALL LIGHT IN REACH.
--- NOTE | 2020-11-20 13:09 | NUR ---
PATIENT GOING DOWN TO OR VIA BED. CONSENT & PRE-OP CHECKLIST ON CHART. NG CLAMPED. IV FLUIDS VIA GRAVITY. AT BEDSIDE. PATIENT NOW OFF FLOOR.
[2020-11-20 17:08] LABS: TB GOLD INTERPRETATION Negative (Negative)
--- NOTE | 2020-11-20 19:00 | NUR ---
Pt. laying in bed. Pt. to the floor from PACU. Pt. is A&OX3 but very drowsy at this time. Shift assessment complete. IV to lt. hand patent, IV fluids infusing per orders. 18 Fr. NG tube to rt. nare patent, with LIS at this time. Vital stable, will monitor.
[2020-11-21] VITALS: BP 106/62; PULSE 78
[2020-11-21 03:54] VITALS: BP 110/64; PULSE 78; TEMP 98
[2020-11-21 06:34] LABS: BASO % 0.1 % (0.0-2.0); GRAN # 9.3 (1.4-6.5); GRAN % 74.5 % (42.2-75.2); LYMPH # 1.9 (1.2-3.4); LYMPH % 15.4 % (20.0-51.0); MEAN CELL VOLUME 95 fl (80.0-100.0); MEAN CORPUSCULAR HGB CONC 32 g/dl (33.0-37.0); MEAN PLATELET VOLUME 10.7 fl (7.4-10.4); MONO # 1.2 (0.1-0.6); MONO % 9.8 % (1.7-9.3); PLATELET COUNT 236 K/mm3 (130-400); RED BLOOD COUNT 3.82 M/mm3 (4.20-5.60)
[2020-11-21 06:37] LABS: HEMATOCRIT 36.2 % (42.0-52.0); HEMOGLOBIN 11.5 g/dl (13.5-18.0); MEAN CORPUSCULAR HEMOGLOBIN 30 pg (27.0-31.0)
[2020-11-21 06:48] LABS: CALCIUM 8.1 mg/dL (8.4-10.2); CREATININE, serum 0.78 (0.66-1.25); MAGNESIUM 2.2 mg/dL (1.6-2.3); PHOSPHOROUS 3.9 mg/dL (2.5-4.5); POTASSIUM 4.2 mmol/L (3.4-5.0)
[2020-11-21 07:38] VITALS: BP 107/58; PULSE 70; TEMP 98.1
--- NOTE | 2020-11-21 08:30 | NUR ---
Patient in bed alert and oriented x 3. Assessment complete. States pain to abomen 7/10 medications given per orders. Incision with edges well approximated. Tolerating clear liquds without N/V. Flor to DD with clear yellow urine present. NG clamped. SCDs to BLE. Patient up to restroom, states he feels like he needs to have a BM, SBA with steady gait. Denies further needs at this time.
[2020-11-21 11:15] VITALS: BP 123/66; PULSE 89; TEMP 98.1
[2020-11-21 15:29] VITALS: BP 127/70; PULSE 85; TEMP 98.7
--- NOTE | 2020-11-21 16:06 | NUR ---
Patient up ambulating in halls independently, states pain when up out of bed, medications given per orders. Patient ambulated >150 feet with steady gait.
--- NOTE | 2020-11-21 18:11 | NUR ---
Patient doing well throughout the day, has been up ambulating independently with steady gait. Tolerating diet without difficulties. Fluids continue infusing per orders. Patient voiding without difficulties. Denies further needs at this time. Will report off to night auditor.
[2020-11-21 19:44] VITALS: BP 123/71; PULSE 72; TEMP 98.6
--- NOTE | 2020-11-21 20:30 | NUR ---
Pt. sitting up in bed. Pt. is A&OX3, assessment complete. IV to lt. hand patent, IV fluids infusing per orders. Pt. reports pain at a 4 on pain scale. Pt. denies further needs,
[2020-11-22] VITALS (7 sets, daily range): BP systolic 123–136; BP diastolic 64–88; PULSE 69–94; TEMP 97.7–98.4
--- NOTE | 2020-11-22 11:28 | NUR ---
Patient has been doing well this morning. Assisted him with getting into the shower and changing his sheets. His IV was leaking, removed it for the shower. Will get a new on started. Main complaint of pain is to his left lower abdomen where the transverse incision is. He had a small dark red stool at shift change this morning and than a large dark red loose one before his shower. No complaints of nausea. No other changes at this time. Call light within reach.
--- NOTE | 2020-11-22 12:27 | NUR ---
Dr Moreira was in to see patient. Stated can leave IV out. Did not start new IV. No other changes at this time. Call light within reach.
--- NOTE | 2020-11-22 18:00 | NUR ---
Patient has been up walking in hallways several times. His pain got better this afternoon. He started to pass more flatus. This morning we had a hard time getting his pain under control. He stated he has almost no pain at this time. He is tolerating his regular diet well. No other changes at this time. Call light within reach.
--- NOTE | 2020-11-22 20:00 | NUR ---
PATIENT UP IN ROOM PER SELF WITH NO REPORTED PROBLEMS OR CONCERNS. REPORTS HAS PASSED SEVERAL STOOLS TODAY. REPORTS HOPING HE IS ABLE TO BE DISCHARGED TO HOME.
--- NOTE | 2020-11-22 22:17 | NUR ---
RECEIVED REPORT FROM INTERACTIVE ACCOUNT MANAGER CHARGE NURSE.
[2020-11-23 04:15] VITALS: BP 128/74; PULSE 75; TEMP 98.1
--- NOTE | 2020-11-23 06:55 | NUR ---
CHANGE OF SHIFT REPORT GIVEN TO DAY SHIFT NURSE, FLORA Meek RN.
--- NOTE | 2020-11-23 07:45 | NUR ---
Pt doing well this morning. He states that he feels much better than he did yesterday morning. He has ordered his breakfast. Pt reports that pain increases with activity, but is doing okay right now. Informed him that I could bring in Ultram around 1030, but that if he needed something sooner, there were options. Incisions all well approximated
[2020-11-23 08:43] VITALS: BP 125/67; PULSE 100; TEMP 98
--- NOTE | 2020-11-23 09:45 | NUR ---
Pt has been up walking in the halls and doing well. Denies any needs, will continue to monitor
[2020-11-23] MEDS ORDERED: NEURONTIN100 MG/CAP PO (11:36)
[2020-11-23] MEDS ORDERED: NORCO 325 MG-51 TAB PO (11:36)
[2020-11-23] MEDS ORDERED: ULTRAM 50MG TAB50 MG PO (11:36)
[2020-11-23] MEDS ORDERED: PREDNISONE10 MG PO (11:38)
--- NOTE | 2020-11-23 11:50 | NUR ---
Pt was up walking in the halls and reported still having some pain. Went to discuss options and patient was in the shower. Will check back
[2020-11-23 12:42] VITALS: BP 137/73; PULSE 105; TEMP 98.9
--- NOTE | 2020-11-23 13:15 | NUR ---
Pt has had and tolerated lunch. He is currently up walking and stated that the additional pain medication helped. No other needs, will continue to monitor
--- NOTE | 2020-11-23 15:17 | NUR ---
Pt okay for discharge. Reviewed discharge instructions with patient to also include new prescriptions and follow up appointments. Pt has called his ride to come and get him. No other needs verbalized. Informed him to notify nursing when she does arrive so that he can be escorted out
== END 2020-11-23 15:41 | disposition home or self-care (01) | DRG 331 ==
LOC: SURG 19:51
PROVIDERS: Internal Medicine Gastroenterology; Surgery; ADMIT Surgery
PROC: 0DTH4ZZ Resection of Cecum, Percutaneous Endoscopic Approach (ICD-10-PCS; principal; 2020-11-20 13:45)
DX: K50.812 Crohn's disease of both small and large intestine with intestinal obstruction (principal); Z88.8 Allergy status to other drugs, medicaments and biological substances; Z79.52 Long term (current) use of systemic steroids
CPT/HCPCS: A4314; A9284; J0690; J1100; J1170; J1200; J1650; J1885; J2250; J2270; J2405; J2550; J2704; J2765; J2920; J3010; J3480; J7120; J7512